=== PATIENT | male | born 1990 | race Hispanic/Latino ===

== ENCOUNTER 2025-02-23 10:16 | Emergency (ER) | payer BC, OTHER ==
[2025-02-23] MEDS ORDERED: KETOROLAC 30 MG/ML INJ ONE (10:56)
[2025-02-23] MEDS ORDERED: ONDANSETRON 4 MG/2 ML VIAL ONE (10:56)
[2025-02-23] MEDS ORDERED: NA CHLORIDE 0.9% 1,000 ML ONE (10:57)
[2025-02-23 11:14] LABS: Absolute Lymphocytes (CBC) 1.5 K/uL (0.7-4.9); Hematocrit 45.6 % (39.6-49.0); Hemoglobin 15.4 g/dL (13.6-17.9); MCH 30.8 pg (27.0-35.0); MCHC 33.7 g/dL (32.0-36.0); MCV 91.4 fL (80-100); MPV 8.4 fL (7.6-11.3); Nucleated RBC Absolute Count 0.0 (0-0); Nucleated Red Blood Cells % 0.0 % (0-0); RBC Red Blood Cell Count 5.00 M/uL (4.33-5.43); White Blood Count 16.80 thou/uL (4.3-10.9)
[2025-02-23] MEDS ORDERED: MORPHINE 4 MG/ML SYR ONE (11:30)
[2025-02-23 11:33] LABS: ALT/SGPT 30.0 U/L (16-61); AST/SGOT 18.0 U/L (15-37); Albumin 4.2 g/dL (3.4-5.0); Albumin/Globulin Ratio 1.2 (1.1-1.8); Alkaline Phosphatase 89.0 U/L (45-117); Anion Gap 12.5 mEq/L (5.0-15.0); BUN Blood Urea Nitrogen 15.0 mg/dL (7-18); Globulin 3.5 g/dL (2.3-3.5); Glucose Level 156.0 mg/dL (74-106); Potassium 3.5 mEq/L (3.5-5.1)
--- NOTE | 2025-02-23 11:39 | RAD REPORT ---
EXAMINATION: CT ABDOMEN AND PELVIS WITHOUT CONTRAST CLINICAL INDICATION: Abdominal pain. Left flank pain TECHNIQUE: CT abdomen and pelvis was performed, as per department protocol. IV contrast and oral was not administered.Axial, sagittal and coronal reconstructions were obtained. One or more of the following dose reduction techniques were used: Automated exposure control, adjustment of the mA and/o r kV according to the patient size, and/or iterative reconstruction. Unless otherwise specified, incidental findings do not require dedicated imaging follow-up. [id number]. COMPARISON: No prior exam. FINDINGS: The lack of intravenous and oral contrast limits evaluation of solid organs, vessels and bowel. Mild left hydronephrosis. Left ureter dilated. 2 mm calculus left UVJ. Faint medullary calcification right kidney. Liver, spleen, pancreas and adrenals grossly normal. Normal appendix. IMPRESSION: 2 mm calculus left UVJ with mild left hydronephrosis
[2025-02-23 11:43] LABS: Sqamous Epithelial None Seen /HPF (None Seen); Urine Crystals Unidentified Few /HPF (None Seen); Urine Culture Reflex Order NOT NEEDED; Urine Microscopic Reflex YN ORDER UMIC; Urine Yeast (Budding) Trace /HPF (None Seen)
--- NOTE | 2025-02-23 12:01 | ER ---
Nurse's Notes [facility] Name: Yves Sanders Age: 35 yrs Sex: Male : 1990 Arrival Date: 02/23/2025 Time: 10:16 Bed 11 Private MD: Diagnosis: Kidney stone;Left Flank pain Presentation: 02/23 10:34 Chief complaint: Patient states: WOKE UP WITH LOW BACK PAIN AND STOMACH PAIN AT 6 AM. dd2 REPORTS N/V. DENIES BURNING PAIN WITH URINATION. Coronavirus screen: At this time, the client does not indicate any symptoms associated with coronavirus-19. Ebola Screen: No symptoms or risks identified at this time. Initial Sepsis Screen: Does the patient meet any 2 criteria? No. Patient's initial sepsis screen is negative. Does the patient have a suspected source of infection? No. Patient's initial sepsis screen is negative. Risk Assessment: Do you want to hurt yourself or someone else? Patient reports no desire to harm self or others. Onset of symptoms was February 23, 2025 at 06:00. 10:34 Method Of Arrival: Ambulatory dd2 10:34 Acuity: BRITT 3 dd2 Triage Assessment: 10:38 General: Appears in no apparent distress. uncomfortable, Behavior is appropriate for dd2 age, agitated, anxious. Pain: Complains of pain in left low back, anterior aspect of left lateral abdomen, posterior aspect of left lateral abdomen and left lower quadrant Pain currently is 10 out of 10 on a pain scale. GI: Reports lower abdominal pain, nausea, vomiting. Musculoskeletal: Reports pain in left low back. Historical: - Allergies: 10:38 No Known Allergies; dd2 - PMHx: 10:38 None; dd2 - PSHx: 10:38 None; dd2 - Immunization history:: Adult Immunizations unknown. - Infectious Disease History:: Denies. - Social history:: Smoking status: Reported history of juuling and/or vaping. Screenin:26 [facility] ED Fall Risk Assessment (Adult) History of falling in the last 3 months, ll1 including since admission No falls in past 3 months (0 pts) Confusion or Disorientation No (0 pts) Intoxicated or Sedated No (0 pts) Impaired Gait No (0 pts) Mobility Assist Device Used No (0 pt) Altered Elimination No (0 pt) Score/Fall Risk Level 0 - 2 = Low Risk Maintained a safe environment, Hourly rounding (assess needs \T\ fall precautionary measures) done. Abuse screen: Denies threats or abuse. Nutritional screening: No deficits noted. Tuberculosis screening: No symptoms or risk factors identified. Assessment: 11:00 General: Appears distressed, uncomfortable, Behavior is cooperative, appropriate for ll1 age, restless. Pain: Complains of pain in L flank Quality of pain is described as aching. Neuro: Reports weakness. GI: Reports lower abdominal pain, nausea, vomiting. : Reports burning with urination, pain in left flank(s). 11:05 Reassessment: No changes from previously documented assessment. Patient and/or family ll1 updated on plan of care and expected duration. Pain level reassessed. 12:24 Reassessment: No changes from previously documented assessment. Patient and/or family ll1 updated on plan of care and expected duration. Pain level reassessed. Patient is alert, oriented x 3, equal unlabored respirations, skin warm/dry/pink. Vital Signs: 10:34 BP 168 / 110; Pulse 49; Resp 18; Temp 98.3; Pulse Ox 100% on R/A; Weight 83.91 kg; Pain dd2 10/10; 12:26 BP 155 / 108; Pulse 51; Resp 17; Pulse Ox 100% ; Pain 5/10; ll1 10:34 Pain Scale: Adult dd2 12:26 Pain Scale: Adult ll1 ED Course: 10:17 Patient arrived in ED. im 10:38 Wilfrid Austin DO is Attending Physician. ms3 10:38 Triage completed. dd2 10:38 Arm band placed on right wrist. dd2 10:45 Initial lab(s) drawn, by ED staff, sent to lab. Inserted saline lock: 20 gauge in right ll1 antecubital area, using aseptic technique. Blood collected. Flushed with 10 mL NS. 11:00 Patient has correct armband on for positive identification. Provided Education on: ER ll1 procedures and process. 11:20 CT Abd/Pelvis - Without Contrast In Process Unspecified. EDMS 11:34 Albaro Millan RN is Primary Nurse. ll1 11:38 Urine collected: clean catch specimen, sent to lab. ts3 11:59 Rinku Mathur MD is Referral Physician. ms3 12:27 No provider procedures requiring assistance completed. IV discontinued, intact, ll1 bleeding controlled, No redness/swelling at site. Pressure dressing applied. Administered Medications: 11:02 Drug: TORadol - Ketorolac IVP 15 mg IVP once {Note: pain 10/10 .} Route: IVP; Site: ll1 right antecubital; 11:35 Follow up: Response: No adverse reaction; Pain is decreased; RASS: Alert and Calm (0) ll1 11:02 Drug: Ondansetron IVP 4 mg IVP once; over 2 minutes Route: IVP; Site: right antecubital;ll1 11:35 Follow up: Response: No adverse reaction ll1 11:02 Drug: NS 0.9% IV 1000 ml IV at 1 bolus Per protocol; to be given as a bolus over 60 ll1 minutes Route: IV; Rate: 1 bolus; Site: right antecubital; 12:14 Follow up: Response: No adverse reaction; IV Status: Completed infusion; IV Intake: ll1 1000ml 11:34 Drug: morphine IVP or IV 4 mg IVP once over 4 mins {Note: pain 8/10 RASS 0.} Route: ll1 IVP; Infused Over: 4 mins; Site: right antecubital; 12:14 Follow up: Response: No adverse reaction; Pain is decreased; RASS: Alert and Calm (0) ll1 12:14 Drug: Tamsulosin PO Extended Release 24 hour Capsule 0.4 mg PO once Route: PO; ll1 12:26 Follow up: Response: No adverse reaction ll1 Medication: 12:28 VIS not applicable for this client. ll1 Intake: 12:14 IV: 1000ml; Total: 1000ml. ll1 Outcome: 12:00 Discharge ordered by . ms3 12:28 Discharged to home ambulatory, ll1 12:28 Condition: stable 12:28 Discharge instructions given to patient, Instructed on discharge instructions, follow up and referral plans. no drinking with medication, no driving heavy equipment, medication usage, Demonstrated understanding of instructions, follow-up care, medications, Prescriptions given X 2, 12:28 Patient left the ED. ll1 Signatures: Dispatcher [employer] EDMS Albaro Millan RN RN ll1 Wilfird Austin DO DO ms3 Enid Joyce DIANA RN RN dd2 Megan Aceves ts3
--- NOTE | 2025-02-23 12:01 | EDPHYS ---
Physician Documentation [facility] Name: Yves Sanders Age: 35 yrs Sex: Male : 1990 Arrival Date: 02/23/2025 Time: 10:16 Bed 11 Private MD: ED Physician Wilfrid Austin HPI: 02/23 12:14 This 35 yrs old Male presents to ER via Ambulatory with complaints of Low Back ms3 Pain. 12:14 35-year-old male with no past medical history presents to the emergency department left ms3 flank pain began this morning. Patient rates pain 10/10 denies any alleviating or inciting factors. Patient states he cannot find a position of comfort. Patient endorses nausea and vomiting.. Historical: - Allergies: 10:38 No Known Allergies; dd2 - PMHx: 10:38 None; dd2 - PSHx: 10:38 None; dd2 - Immunization history:: Adult Immunizations unknown. - Infectious Disease History:: Denies. - Social history:: Smoking status: Reported history of juuling and/or vaping. ROS: 12:14 Constitutional: Negative for fever, and chills. Cardiovascular: Negative for chest ms3 pain, and palpitations. Respiratory: Negative for shortness of breath, cough, wheezing, and pleuritic chest pain, 12:14 Skin: Negative for injury, rash, and discoloration, 12:14 Abdomen/GI: Positive for nausea and vomiting, Exam: 12:14 Constitutional: This is a well developed, well nourished patient who is awake, alert, ms3 and in no acute distress. Cardiovascular: Regular rate and rhythm with a normal S1 and S2. No gallops, murmurs, or rubs. Normal PMI, no JVD. No pulse deficits. Respiratory: Lungs have equal breath sounds bilaterally, clear to auscultation and percussion. No rales, rhonchi or wheezes noted. No increased work of breathing, no retractions or nasal flaring. Abdomen/GI: Soft, non-tender, with normal bowel sounds. No distension or tympany. No guarding or rebound. No evidence of tenderness throughout. MS/ Extremity: Pulses equal, no cyanosis. Neurovascular intact. Full, normal range of motion. 12:14 Skin: diaphoretic. Vital Signs: 10:34 BP 168 / 110; Pulse 49; Resp 18; Temp 98.3; Pulse Ox 100% on R/A; Weight 83.91 kg; Pain dd2 10/10; 12:26 BP 155 / 108; Pulse 51; Resp 17; Pulse Ox 100% ; Pain 5/10; ll1 10:34 Pain Scale: Adult dd2 12:26 Pain Scale: Adult ll1 MDM: 10:39 Medical Screening Exam initiated ms3 11:53 ED course: RETORT OR [employer] database searched without record. ms3 12:14 Differential diagnosis: strain, UTI, Kidney stone. Data reviewed: vital signs, nurses ms3 notes, lab test result(s), EKG, radiologic studies, and as a result, I will discharge patient. I considered the following discharge prescriptions or medication management in the emergency department Medications were administered in the Emergency Department. See MAR. Counseling: I had a detailed discussion with the patient and/or guardian regarding the historical points, exam findings, and any diagnostic results supporting the discharge/admit diagnosis, lab results, radiology results, the need for outpatient follow up, to return to the emergency department if symptoms worsen or persist or if there are any questions or concerns that arise at home. Special discussion: I discussed with the patient/guardian in detail that at this point there is no indication for admission to the hospital. It is understood, however, that if the symptoms persist or worsen the patient needs to return immediately for re-evaluation. ED course: Discussed 2 mm stone with patient. Patient to follow-up Dr. Mathur. All questions were answered. Return precautions discussed include worsening symptoms, or any other concerns. On reevaluation patient is alert and orient x 4, no apparent distress, nontoxic-appearing, speaking full sentences.. 02/23 10:44 Order name: CBC with Diff; Complete Time: 11:44 ms3 02/23 10:44 Order name: CMP; Complete Time: 11:44 ms3 02/23 10:44 Order name: UA Rfx Trey Cult if indicated; Complete Time: 11:44 ms3 02/23 10:44 Order name: CT Abd/Pelvis - Without Contrast; Complete Time: 11:44 ms3 02/23 10:44 Order name: IV Saline Lock; Complete Time: 11:02 ms3 02/23 10:44 Order name: Labs collected and sent; Complete Time: 11:31 ms3 Administered Medications: 11:02 Drug: TORadol - Ketorolac IVP 15 mg IVP once {Note: pain 10/10 .} Route: IVP; Site: ll1 right antecubital; 11:35 Follow up: Response: No adverse reaction; Pain is decreased; RASS: Alert and Calm (0) 1 11:02 Drug: Ondansetron IVP 4 mg IVP once; over 2 minutes Route: IVP; Site: right antecubital;1 11:35 Follow up: Response: No adverse reaction ll1 11:02 Drug: NS 0.9% IV 1000 ml IV at 1 bolus Per protocol; to be given as a bolus over 60 ll1 minutes Route: IV; Rate: 1 bolus; Site: right antecubital; 12:14 Follow up: Response: No adverse reaction; IV Status: Completed infusion; IV Intake: ll1 1000ml 11:34 Drug: morphine IVP or IV 4 mg IVP once over 4 mins {Note: pain 8/10 RASS 0.} Route: ll1 IVP; Infused Over: 4 mins; Site: right antecubital; 12:14 Follow up: Response: No adverse reaction; Pain is decreased; RASS: Alert and Calm (0) 1 12:14 Drug: Tamsulosin PO Extended Release 24 hour Capsule 0.4 mg PO once Route: PO; 1 12:26 Follow up: Response: No adverse reaction ll1 Disposition Summary: 02/23/25 12:00 Discharge Ordered Notes: Location: Home ms3 Problem: new ms3 Symptoms: are unchanged ms3 Condition: Stable ms3 Diagnosis - Kidney stone ms3 - Left Flank pain ms3 Followup: ms3 - With: Rinku Mathur MD - When: 2 - 3 days - Reason: Recheck today's complaints Discharge Instructions: - Discharge Summary Sheet ms3 - Kidney Stones, [id number] ms3 Forms: - Medication Reconciliation Form ms3 - Antibiotic Education ms3 - Prescription Opioid Use ms3 - Patient Portal Instructions ms3 - Leadership Thank You Letter ms3 Prescriptions: - tamsulosin 0.4 mg Oral capsule - take 1 capsule ORAL route daily; 14 capsule; Refills: 0, Product Selection ms3 Permitted Signatures: Dispatcher [employer] Albaro Elizabeth RN RN ll1 Wilfrid Austin DO DO ms3 FANTASMA DAVIS RN RN dd2 Corrections: (The following items were deleted from the chart) 10:44 10:44 CBC+H.LAB.BRZ ordered. EDMS EDMS 10:44 10:44 COMPREHENSIVE METABOLIC PANEL+C.LAB.BRZ ordered. EDMS EDMS 10:44 10:44 UA Rfx Trey Cult if indicated+U.LAB.BRZ ordered. EDMS EDMS 10:44 10:44 Abdomen Pelvis Wo Con+CT.RAD.BRZ ordered. EDMS EDMS 12:28 12:14 Constitutional: This is a well developed, well nourished patient who is awake, ms3 alert, and in no acute distress. Cardiovascular: Regular rate and rhythm with a normal S1 and S2. No gallops, murmurs, or rubs. Normal PMI, no JVD. No pulse deficits. Respiratory: Lungs have equal breath sounds bilaterally, clear to auscultation and percussion. No rales, rhonchi or wheezes noted. No increased work of breathing, no retractions or nasal flaring. Abdomen/GI: Soft, non-tender, with normal bowel sounds. No distension or tympany. No guarding or rebound. No evidence of tenderness throughout. ms3
[2025-02-23] MEDS ORDERED: TAMSULOSIN 0.4 MG SR CAP ONE (12:11)
[2025-02-23 14:52] VITALS: TEMP 98.3; O2SAT 100
[2025-02-23 14:53] VITALS: BP 155/108
== END 2025-02-23 12:28 | disposition home or self-care (01) ==
LOC: ER 10:16
DX: N20.0 Calculus of kidney (principal)
CPT/HCPCS: 85025; 81001; 36415; 80053; 74176; J2405; J7030